=== PATIENT | female | born 1985 | race Caucasian/White ===

== ENCOUNTER 2016-12-13 12:01 | Emergency (ER) | payer OTHER ==
[2016-12-13 12:05] VITALS: BP 107/66
--- NOTE | 2016-12-13 12:51 | ED Physician Documentation ---
PD HPI LOWER EXT INJURY - Stated complaint Stated Complaint: L KNEE PX INJ - Chief complaint Chief Complaint: Ext Problem - History obtained from History obtained from: Patient, Family - History of Present Illness PD HPI LOW EXT INJURY LOCATION: Left, Knee Type of injury: Twist Where injury occurred: Home Timing - onset: Last night Timing - duration: Days (1) Timing - details: Abrupt onset Pain level max: 8 Pain level now: 4 Improved by: Rest, Ice, Immobilization Worsened by: Moving, Palpating, Other (walking) Associated symptoms: Swelling. No: Weakness, Numbness, Tingling, Discolored Contributing factors: No: Anticoagulated, Prior ortho surgery, Prosthetic joint , Work related Similar symptoms before: Has not had sx before Recently seen: Not recently seen Review of Systems Nose: denies: Rhinorrhea / runny nose, Congestion Throat: denies: Sore throat GI: denies: Abdominal Pain, Nausea, Vomiting, Diarrhea : denies: Now EGA Skin: denies: Rash Musculoskeletal: denies: Neck pain, Back pain Neurologic: denies: Headache PD PAST MEDICAL HISTORY - Past Medical History Past Medical History: Yes Respiratory: Asthma - Past Surgical History Past Surgical History: Yes - Present Medications Home Medications: Ambulatory Orders Medication Instructions Recorded Confirmed buPROPion [Wellbutrin Sr] 1 tab PO DAILY 12/13/16 12/13/16 - Allergies Allergies/Adverse Reactions: Allergies Allergy/AdvReac Type Severity Reaction Status Date / Time amoxicillin Allergy Rash Verified 12/13/16 12:06 - Social History Does the pt smoke?: No Smoking Status: Never smoker Does the pt drink ETOH?: Yes Does the pt have substance abuse?: No PD ED PE NORMAL - Vitals Vital signs reviewed: Yes - General General: Alert and oriented X 3, No acute distress - Derm Derm: Warm and dry - Extremities Extremities: Other (L knee - mild swelling. ACL, MCL, PCL, LCL intact. + Kalen test) - Neuro Neuro: Alert and oriented X 3 - Psych Psych: Normal mood, Normal affect Results - Vitals Vitals: Vital Signs - 24 hr 12/13/16 12:04 Temperature 36.5 C Heart Rate 69 Respiratory 18 Rate Blood Pressure 107/66 O2 Saturation 100 - Rads (name of study) L knee xray Radiology: Prelim report reviewed, EMP read contemporaneously, See rad report ( Normal) PD MEDICAL DECISION MAKING - ED course Complexity details: reviewed results, re-evaluated patient, considered differential, d/w patient ED course: Patient is a 31-year-old female who presents to the emergency department with a left knee injury yesterday. Continued pain today. No acute findings on x-ray. Exam is consistent with a meniscal tear. Kushal wrap placed for comfort and placed on crutches. Declines pain medication here or for home. We will have her follow-up with her doctor for further evaluation and care. Patient counseled regarding signs and symptoms for which I believe and urgent re- evaluation would be necessary. Patient with good understanding of and agreement to plan and is comfortable going home at this time This document was made in part using voice recognition software. While efforts are made to proofread this document, sound alike and grammatical errors may occur. Departure - Departure Disposition: 01 Home, Self Care Clinical Impression: Meniscus tear Condition: Good Instructions: ED Meniscal Injury Knee Poss Follow-Up: Lane Lentz MD [Primary Care Provider] - Within 1 week [facility] [Provider Group] Comments: Return if you worsen. You can use motrin or tylenol as needed for pain at home. Discharge Date/Time: 12/13/16 14:13
--- NOTE | 2016-12-13 13:43 | XRAY Preliminary Report ---
Exam: XR Knee 4 View LT IMPRESSION: Negative left knee radiography. [facility] SITE ID: [id number]
--- NOTE | 2016-12-13 13:46 | XRAY Report ---
EXAM: LEFT KNEE RADIOGRAPHY EXAM DATE: 12/13/2016 01:28 PM. CLINICAL HISTORY: L knee injury, twist. COMPARISON: None. TECHNIQUE: 4 views. FINDINGS: Bones: No fractures or bone lesions. Joints: No degenerative process. No effusion. No subluxations. Soft Tissues: No soft tissue swelling. IMPRESSION: Negative left knee radiography. [facility] Referring Provider Line: [phone] SITE ID: [id number]
== END 2016-12-13 14:13 | disposition home or self-care (01) ==
LOC: ED 12:01
DX: S83.207A Unspecified tear of unspecified meniscus, current injury, left knee, initial encounter (principal); X50.0XXA Overexertion from strenuous movement or load, initial encounter; Y92.019 Unspecified place in single-family (private) house as the place of occurrence of the external cause; J45.909 Unspecified asthma, uncomplicated
CPT/HCPCS: 99283

== ENCOUNTER 2017-01-10 12:10 | Outpatient (CLI) | payer OTHER ==
--- NOTE | 2017-01-10 15:34 | MRI Report ---
EXAM: LEFT KNEE MRI WITHOUT CONTRAST EXAM DATE: 01/10/2017 01:06 p.m. CLINICAL HISTORY: Chronic left knee pain 1 month ago. Patient twisted left knee. COMPARISON: None. TECHNIQUE: Multiplanar, multisequence T1-weighted and fluid-sensitive sequences of the knee without c ontrast. Other: None. FINDINGS: Bones: No fractures or subluxations. No marrow edema. No bone lesions. Articular Cartilage: There is moderate thinning of the hyaline cartilage of the medial compartment. Medial Meniscus: There is a bucket-handle tear of the medial meniscus. There is a fragment in the int ercondylar notch of the femur. The fragment is derived from the body and anterior horn. Lateral Meniscus: The lateral meniscus is intact. Cruciate Ligaments: The anterior and posterior cruciate ligaments are intact. Collateral Ligaments: The medial collateral and lateral collateral ligamentous structures are intact. Tendons: The quadriceps, patellar, semimembranosus, and popliteus tendons are unremarkable. Musculature: No edema or fatty atrophy. Other: There is a small joint effusion. No popliteal cyst. No loose bodies. The medial and lateral r etinacula are intact. The subcutaneous tissues and fat pads are unremarkable. IMPRESSION: 1. Bucket-handle tear of the medial meniscus. 2. Mild medial compartment hyaline cartilage thinning. 3. Small joint effusion. [facility]CULOSKELET[facility] SECTION Referring Provider Line: [phone] SITE ID: [id number]
== END 2017-01-10 12:11 | disposition home or self-care (01) ==
LOC: DI 12:10
PROVIDERS: ATTEND Orthopaedic Surgery
DX: M25.562 Pain in left knee (principal); S83.212A Bucket-handle tear of medial meniscus, current injury, left knee, initial encounter; M25.462 Effusion, left knee

== ENCOUNTER 2017-03-03 11:08 | Day surgery (SDC) | payer OTHER ==
[2017-03-03] MEDS ORDERED: LACTATED RINGERS 1,000 ML IV ONE ×2 (11:19→15:05)
[2017-03-03] MEDS ORDERED: ceFAZolin 1 GM VIAL ONE (11:21)
[2017-03-03 11:35] LABS: HCG UR QUAL NEGATIVE
[2017-03-03] MEDS ORDERED: BUPIVACAINE 0.25%-EPI 1:200000 PF 10 ML VIAL SUBQ ONE (15:03)
[2017-03-03] MEDS ORDERED: LIDOCAINE-MPF 2% 5 ML VIAL IM ONE (15:40)
[2017-03-03] MEDS ORDERED: METOCLOPRAMIDE 10 MG/2 ML VIAL IVP ONE (15:40)
[2017-03-03] MEDS ORDERED: KETOROLAC 30 MG/ML VIAL IVP ONE (15:40)
[2017-03-03] MEDS ORDERED: ONDANSETRON 4 MG/2 ML VIAL IVP ONE (15:40)
[2017-03-03] MEDS ORDERED: DEXAMETHASONE 4 MG/ML VIAL IVP ONE (15:40)
--- NOTE | 2017-03-03 16:29 | OPERATIVE REPORT ---
DATE OF SURGERY: 03/03/2017 00:00:00 PREOPERATIVE DIAGNOSIS: Left knee medial meniscus bucket handle tear, which is chronic. POSTOPERATIVE DIAGNOSIS: Left knee medial meniscus bucket handle tear, which is chronic. NAME OF PROCEDURE: Left knee exam under anesthesia, arthroscopy, partial medial meniscectomy and medi al plica excision. SURGEON: Carlos Calabrese MD. ANESTHESIA: General by Lane De Souza CRNA. INDICATIONS FOR SURGERY: The patient is a 31-year-old female with a chronic medial meniscus tear foll owing a twisting injury. The patient has gone 4 months with minimal knee pain and has been very activ e and ultimately now has decided that she is bothered enough to take action. She has known that she h ad a bucket handle tear during this time. Recommendation was that she undergo meniscectomy, assuming that the meniscus would be degenerate and multiplely torn, which was to be expected and it was docume nted at surgery. FINDINGS AT SURGERY: The patient's knee was stable to varus and valgus stress. The patient had full r mishel of motion. At arthroscopy, she had a synovial effusion. She had some bruising in the notch area from articulation with what appeared to be most of the posterior horn with minimal attachment posteri philip and extreme fraying in this area. The residual meniscus rim did not have tearing, but the fragme nt in question was mostly degenerated and torn. Remaining knee was unremarkable, safe for a large pli ca on the medial side. It did not show thickening or pinching, but did seem to interfere with proper visualization and therefore was taken down to the synovial lining. DESCRIPTION OF OPERATIVE PROCEDURE: The patient was taken to operating room, given a general anesthet ic. Her knee was sterilely prepped and draped in standard fashion. Arthroscopy was undertaken using s tandard anteromedial and lateral portals. The patient's exposure did require, as discussed above, a r esection of the medial plica, which gained better visualization of the medial side and some of the fa t pad was resected. Careful exam was made of the entire knee. Pathology was then addressed by examini ng the meniscus carefully with a probe and identifying the damage done to the more posterior rim of m eniscus that had been wedged in the notch and adjacent to the condyle surface. Resection was carried out by trimming the posterior horn and the meniscus and dividing the anterior horn attachment and ext racting the fragment. The residual limb was shaved thoroughly and meniscal tissue was extracted and s moothing was done. At the conclusion, the knee was flushed thoroughly of meniscal debris. The scope w as withdrawn. Portals were closed with interrupted nylon suture and sterile dressings were applied. T he patient was taken to the recovery room in stable condition. ESTIMATED BLOOD LOSS: Minimal. COMPLICATIONS: None. SPONGE AND NEEDLE COUNTS: Correct. JOB #: [id number] EXT JOB #:[id number]
[2017-03-03] MEDS ORDERED: HYDROcod/ACETAM 5/325 MG TABLET ONE (16:35)
[2017-03-03 17:18] VITALS: BP 109/67
== END 2017-03-03 11:09 | disposition home or self-care (01) ==
LOC: SDS 11:08
PROVIDERS: ATTEND Orthopaedic Surgery
PROC: 0SBD4ZZ Excision of Left Knee Joint, Percutaneous Endoscopic Approach (ICD-10-PCS; principal; 2017-03-03 12:15)
DX: M23.204 Derangement of unspecified medial meniscus due to old tear or injury, left knee (principal); J45.909 Unspecified asthma, uncomplicated
CPT/HCPCS: 29881; 81025; A9270; J7120

== ENCOUNTER 2023-01-20 15:39 | Outpatient (CLI) | payer OTHER ==
--- NOTE | 2023-01-21 16:10 | MRI Report ---
PROCEDURE: BRAIN W/WO INDICATIONS: VERTIGO, DAILY HEADACHES CONTRAST: gadavist 5.6ml TECHNIQUE: Noncontrast axial T1 spin echo, axial T2 fast spin echo, sagittal and axial FLAIR, coronal T2 fast sp in echo, axial gradient echo, axial diffusion and ADC through the brain. After the administration of contrast, axial and coronal T1 spin echo with fat saturation through the brain. COMPARISON: None. FINDINGS: Image quality: Excellent. CSF spaces: Basal cisterns are patent. No extra-axial fluid collections. Ventricles are normal in size and shape. Brain: No midline shift. No intracranial bleeds or masses. No abnormal intracranial enhancement. T he brainstem appears normal. Diffusion-weighted images demonstrate no acute ischemic insults. No ch ronic ischemic insults. Normal intravascular flow voids are present. Skull and face: Calvarial marrow is normal in signal. Orbits appear normal. Sinuses: Sinuses and mastoids appear clear. IMPRESSION: 1.No cause for patient's symptoms identified. 2.No acute intracranial abnormalities. No abnormal intracranial enhancement. Reviewed by: Hardy Hoover MD on 01/21/2023 4:09 PM PDT Approved by: Hardy Hoover MD on 01/21/2023 4:09 PM PDT Station ID: [id number]
== END 2023-01-20 15:40 | disposition home or self-care (01) ==
LOC: DI 15:39
PROVIDERS: ATTEND Physician Assistant
DX: R42 Dizziness and giddiness (principal); R51.9 Headache, unspecified
CPT/HCPCS: 70553; A9585